=== PATIENT | female | born 1970 | race Caucasian/White ===

== ENCOUNTER 2020-04-28 17:32 | Emergency (ER) | payer OTHER, SELFPAY ==
[2020-04-28 17:43] VITALS: BP 110/55; PULSE 82; RESP 20; TEMP 36.8; O2SAT 100
--- NOTE | 2020-04-28 17:52 | ED.WOUNDLAC ---
HPI - Wound/Laceration General Chief Complaint: Wound/Laceration Stated Complaint: Right Thumb Injury Time Seen by Provider: 04/28/20 17:52 Source: patient Mode of arrival: ambulatory Limitations: no limitations History of Present Illness HPI narrative: Norma Mcgarry is a 50 yo female with no PMH who comes to express care with a small laceration to the right thumb; controlled bleeding. No pain Needs a tetanus vaccination Related Data Home Medications Medication Instructions Recorded Confirmed fluoxetine mg 04/28/20 Allergies Allergy/AdvReac Type Severity Reaction Status Date / Time Penicillins Allergy Intermediate Rash Verified 04/28/20 17:53 Review of Systems Review of Systems: Narrative: CONSTITUTIONAL: Denies fever, chills, sweats. EYES: Denies visual changes, redness, discharge. ENT: Denies rhinorrhea, congestion, sore throat, otalgia. CARDIOVASCULAR: Denies chest pain, palpitations, edema. RESPIRATORY: Denies dyspnea, wheezing, cough GASTROINTESTINAL: Denies abdominal pain, nausea, vomiting, diarrhea. GENITOURINARY: Denies dysuria, hematuria, abnormal discharge SKIN: Denies rash or itching. Small superficial laceration to medial thumb does not cross nail acute, between DPT and tip NEUROLOGIC: Denies numbness, or focal weakness. PSYCHIATRIC: Denies anxiety or depression. [facility] Family History Family History Other Hypertension Social History Social History (Updated 04/28/20 @ 18:07 by Amberly Howard CNP) Smoking packs per day: 0.5 Smoking cigarettes per day: 10.0 Smoking status: Current every day smoker Alcohol intake: current Comments At time of signature, I agree with nursing past medical, surgical, social and family history. There is no relevant family history pertinent to the presenting complaint. Exam Narrative: Exam Narrative: GENERAL: This is a well-nourished, well-developed patient, in mild distress. HEAD: normocephalic, atraumatic. EYES: Sclera clear/white. Vision is grossly intact. EARS: External ears normal,. Hearing grossly intact. NOSE: External nose normal without nasal discharge, nares without redness, no rhinorrhea. THROAT: Mucous membranes moist, NECK: Neck supple, non-tender CARDIOVASCULAR: Regular rate and rhythm without murmurs, gallops, or rubs. RESPIRATORY: Clear to auscultation. Breath sounds equal bilaterally. No wheezes, rales, or rhonchi. GASTROINTESTINAL: Abdomen soft, non-tender, SKIN: warm, intact with no suspicious lesions one centimeter superficial laceration with controlled bleeding good 2+ pulse skin tag and warm lacerations across nailbed good range of motion NEURO: awake, alert, and oriented to person, place and time. There were no obvious focal neurologic abnormalities. Steady gait EXTREMITIES: Normal range of motion. BACK: Nontender without deformity Course Course Emergency Course: Lack repair with Steri-Strips and glue Vital Signs Vital signs: Vital Signs Temperature 98.3 F 04/28/20 17:43 Pulse Rate 82 04/28/20 17:43 Respiratory Rate 20 04/28/20 17:43 Blood Pressure 110/55 L 04/28/20 17:43 Pulse Oximetry 100 04/28/20 17:43 Temperature 98.3 F 04/28/20 17:43 Pulse Rate 82 04/28/20 17:43 Respiratory Rate 20 04/28/20 17:43 Blood Pressure 110/55 L 04/28/20 17:43 Pulse Oximetry 100 04/28/20 17:43 Procedures Laceration Laceration 1: Date: 04/28/20 Time: 18:00 Site: hand Side (If applicable): right Size (cm): 1 Description: linear Depth: simple, single layer Pre-repair: irrigated ====== Skin Level ====== Skin layer closed with: dermabond and steri strips ====== Subcutaneous Layer ====== ====== Muscle Layer ====== ====== Tendon Layer ====== Dressing: Dressing for protection MDM - Wound/Laceration Differential Diagnosis Differential diagnosis: Likely lacera
[2020-04-28] MEDS: TETANUS,DIPHTHERIA,AC PERTUSSIS ADULT 0.5 ML (ADACEL) IM (18:02)
== END 2020-04-28 18:17 | disposition home or self-care (01) ==
PROVIDERS: Emergency Provider Nurse Practitioner
DX: S61.011A Laceration without foreign body of right thumb without damage to nail, initial encounter (principal); F17.210 Nicotine dependence, cigarettes, uncomplicated; Z23 Encounter for immunization; W27.0XXA Contact with workbench tool, initial encounter; F32.9 Major depressive disorder, single episode, unspecified
CPT/HCPCS: 12001; 90471; 90715; 99212; G0463